=== PATIENT | female | born 1970 ===

== ENCOUNTER 2022-12-08 19:16 | Emergency (ER) | payer SELFPAY ==
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
[2022-12-08 19:07] VITALS: BP 196/96; PULSE 84; RESP 26; TEMP 38; O2SAT 93
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
[2022-12-08] MEDS: Droperidol 5 MG/2 ML VIAL IVP (20:29)
[2022-12-08] MEDS: Normal Saline 1,000 ML 1000 ML IV (20:30)
[2022-12-08] MEDS: Omnipaque 350 MG/ML 100 ML BTL IJ (20:43)
--- NOTE | 2022-12-08 20:47 | NUR.NOTE ---
Pt is adamantly refusing lab draw for hospital eval and legal. Provider is aware and is okay with sending pt to radiology for CT and XR at this time.
[2022-12-08] MEDS: Normal Saline - Diluent 50 ML VIAL IJ (21:02)
[2022-12-08] MEDS: Normal Saline Flush 10 ML SYR IVP (21:03)
--- NOTE | 2022-12-08 21:25 | DI.VRAD_ITS ---
PROCEDURE INFORMATION: Exam: CT Head Without Contrast Exam date and time: 12/08/2022 8:55 PM Age: 52 years old Clinical indication: Other: Trauma TECHNIQUE: Imaging protocol: Computed tomography of the head without contrast. Radiation optimization: All CT scans at this facility use at least one of these dose optimization techniques: automated exposure control; mA and/or kV adjustment per patient size (includes targeted exams where dose is matched to clinical indication); or iterative reconstruction. COMPARISON: No relevant prior studies available. FINDINGS: Brain: Mild volume loss. No hemorrhage. Unremarkable white matter. No mass effect. Cerebral ventricles: No ventriculomegaly. Paranasal sinuses: Minimal fluid versus blood left maxillary sinus. Minimal mucosal thickening Mastoid air cells: Visualized mastoid air cells are well aerated. Bones/joints: Minimal nasal bone/nasal septal fractures of indeterminate age. Soft tissues: Unremarkable. IMPRESSION: No acute intracranial hemorrhage Age-indeterminate nasal bone/nasal septal fractures Minimal fluid versus blood left maxillary sinus PROCEDURE INFORMATION: Exam: CT Cervical Spine Without Contrast Exam date and time: 12/08/2022 8:55 PM Age: 52 years old Clinical indication: Other: Trauma TECHNIQUE: Imaging protocol: Computed tomography of the cervical spine without contrast. Radiation optimization: All CT scans at this facility use at least one of these dose optimization techniques: automated exposure control; mA and/or kV adjustment per patient size (includes targeted exams where dose is matched to clinical indication); or iterative reconstruction. COMPARISON: No relevant prior studies available. FINDINGS: Bones/joints: No acute fracture. Mild lordosis straightening. No significant disc bulge or herniation. No severe spinal canal stenosis. No significant neural foraminal narrowing. Lungs: Lung apices are grossly clear Soft tissues: Unremarkable. IMPRESSION: No acute findings. Dictated and Authenticated by: Dylon Koenig MD. Ordering:HERVE Foster MD
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
--- NOTE | 2022-12-08 21:40 | DI.VRAD_ITS ---
PROCEDURE INFORMATION: Exam: CT Chest With Contrast; Diagnostic Exam date and time: 12/08/2022 9:00 PM Age: 52 years old Clinical indication: Other: Trauma TECHNIQUE: Imaging protocol: Diagnostic computed tomography of the chest with contrast. Radiation optimization: All CT scans at this facility use at least one of these dose optimization techniques: automated exposure control; mA and/or kV adjustment per patient size (includes targeted exams where dose is matched to clinical indication); or iterative reconstruction. Contrast material: OMNIPAQUE 350; Contrast volume: 100 ml; Contrast route: INTRAVENOUS (IV); COMPARISON: CT HEAD CERVICAL SPINE WO 12/08/2022 8:55 PM FINDINGS: Lungs: Minimal subsegmental atelectasis. No consolidation. No masses. Pleural spaces: Unremarkable. No pneumothorax. No pleural effusion. Heart: Mild cardiomegaly. No pericardial effusion. Lymph nodes: Unremarkable. No enlarged lymph nodes. Vasculature: Unremarkable. No aortic aneurysm. Bones/joints: Unremarkable. No acute fracture. Soft tissues: Unremarkable. IMPRESSION: No acute findings. No CT evidence for acute traumatic injury to the chest PROCEDURE INFORMATION: Exam: CT Abdomen And Pelvis With Contrast Exam date and time: 12/08/2022 9:00 PM Age: 52 years old Clinical indication: Other: Trauma TECHNIQUE: Imaging protocol: Computed tomography of the abdomen and pelvis with contrast. Radiation optimization: All CT scans at this facility use at least one of these dose optimization techniques: automated exposure control; mA and/or kV adjustment per patient size (includes targeted exams where dose is matched to clinical indication); or iterative reconstruction. Contrast material: OMNIPAQUE 350; Contrast volume: 100 ml; Contrast route: INTRAVENOUS (IV); COMPARISON: No relevant prior studies available. FINDINGS: Liver: Intrahepatic biliary ductal dilatation. Fatty infiltration of the liver. Gallbladder and bile ducts: Prior cholecystectomy. Dilatation of the common bile duct Pancreas: Normal. No ductal dilation. Spleen: Normal. No splenomegaly. Adrenal glands: Normal. No mass. Kidneys and ureters: Left renal hypodensity too small to characterize No hydronephrosis. Stomach and bowel: Unremarkable. No obstruction. No mucosal thickening. Appendix: No evidence of appendicitis. Intraperitoneal space: Unremarkable. No free air. No significant fluid collection. Vasculature: Unremarkable. No abdominal aortic aneurysm. Lymph nodes: Unremarkable. No enlarged lymph nodes. Urinary bladder: Unremarkable as visualized. Reproductive: Prior hysterectomy/right oophorectomy. Bones/joints: Unremarkable. No acute fracture. Soft tissues: Unremarkable. IMPRESSION: No acute findings. No solid organ injury observed Dictated and Authenticated by: Dylon Koenig MD. Ordering:HERVE Foster MD
[2022-12-08 21:42] VITALS: BP 117/68; PULSE 73; RESP 18; TEMP 37.4; O2SAT 96
[2022-12-08 23:22] VITALS: BP 117/68; PULSE 75; RESP 16; TEMP 37.5; O2SAT 100
[2022-12-08 23:22] LABS: Kit/Specimen SENT
== END 2022-12-08 23:54 ==
PROVIDERS: Emergency Provider Nurse Practitioner Acute Care
DX: M79.602 Pain in left arm (principal); R41.82 Altered mental status, unspecified; M25.532 Pain in left wrist; S80.212A Abrasion, left knee, initial encounter; S80.211A Abrasion, right knee, initial encounter; V89.2XXA Person injured in unspecified motor-vehicle accident, traffic, initial encounter
CPT/HCPCS: 36415; 73562; 74177; 80053; 96361; 96374; 99284; 99285; 70450; 71260; 72125; 80320; 83735; 85025; J1790; J3490